=== PATIENT | female | born 1950 | race Caucasian/White ===

== ENCOUNTER 2019-11-20 15:08 | Outpatient (CLI) | payer MEDICARE, SELFPAY ==
[2019-11-20 16:42] LABS: Alanine Aminotransferase 30 U/L (4-35); Albumin Level 3.9 g/dL (3.5-5.1); Alkaline Phosphatase 122 U/L (38-126); Aspartate Amino Transferase 30 U/L (14-36); Bilirubin,Total 0.7 mg/dL (0.2-1.3); Blood Urea Nitrogen 17 mg/dL (7-17); Calcium 8.9 mg/dL (8.4-10.2); Carbon Dioxide 29 mmol/L (22-30); Chloride 107 mmol/L (98-107); Estimated Glomerular Filt Rate > 60; Glucose 104 mg/dL (65-105); Magnesium 2.1 mg/dL (1.6-2.3); Potassium 3.9 mmol/L (3.4-5.0); Sodium 139 mmol/L (137-145)
== END 2019-11-20 15:09 | disposition home or self-care (01) ==
PROVIDERS: PCP Family Medicine; Visit Provider Internal Medicine Cardiovascular Disease
DX: E78.5 Hyperlipidemia, unspecified (principal)
CPT/HCPCS: 36415; 80053; 83735

== ENCOUNTER 2020-05-14 12:40 | Outpatient (CLI) | payer MEDICARE, SELFPAY ==
--- NOTE | 2020-05-14 12:45 | ECHO_ITS ---
Patient Info Name: Carline Carrasco Age: 70 years : 1950 Gender: Female Ht: 59 in Wt: 190 lbs BSA: 1.94 m2 HR: 65 bpm BP: 183 / 99 mmHg Heart Rhythm: Sinus Rhythm Technical Quality: Good Exam Date: 05/14/2020 12:47 PM Exam Location: [facility] Patient Status: Outpatient Admit Date: 05/14/2020 Staff Ordering Physician: Chivo Ly DO Director Of Resource Development: Cory Saucedo RDCS Attending Provider: Chivo Ly DO Referring Physician: Malachi SOMMER; Exam Type: CA echo doppler color flow Study Info Indications R60.9 - Edema, unspecified Complete two-dimensional, color flow and Doppler transthoracic echocardiogram is performed. Strain analysis performed. History/Risk Factors Edema, HTN. Summary 1. Complete two-dimensional, color flow and Doppler transthoracic echocardiogram is performed. 2. Left ventricular chamber dimension is normal. 3. Left ventricular systolic function is normal, estimated at 65-70%. 4. The left ventricular diastolic function is grade I diastolic dysfunction. 5. E/e' 15 is elevated. 6. Global longitudinal strain is normal at -19.4%. 7. Left atrial chamber dimension is mildly enlarged. 8. There is moderate aortic valve sclerosis. 9. There is mild aortic valve stenosis with a peak velocity of 186 cm/s, mean gradient of 7 mmHg, and aortic valve area of 1.9 cm2. 10. The mitral valve has moderately calcified annulus. 11. There is trace pulmonic regurgitation. Left Ventricle E/e' 15 is elevated. Global longitudinal strain is normal at -19.4%. Left ventricular chamber dimension is normal. Left ventricular systolic function is normal, estimated at 65-70%. The left ventricular diastolic function is grade I diastolic dysfunction. Right Ventricle Right ventricular chamber dimension is normal. Right ventricular systolic function is normal. Left Atria Left atrial chamber dimension is mildly enlarged. Right Atria Right atrial chamber dimension is normal. Aortic Valve The aortic valve is trileaflet. There is moderate aortic valve sclerosis. There is mild aortic valve stenosis with a peak velocity of 186 cm/s, mean gradient of 7 mmHg, and aortic valve area of 1.9 cm2. There is no aortic valve regurgitation. Pulmonic Valve There is trace pulmonic regurgitation. Mitral Valve The mitral valve has moderately calcified annulus. There is no mitral valve stenosis. There is no mitral valve regurgitation. Tricuspid Valve There is no tricuspid valve regurgitation. Pericardium/Pleural There is no pericardial effusion. Inferior Vena Cava Normal inferior vena cava with >50% collapse upon inspiration consistent with normal right atrial pressure, 5 mmHg. Aorta The aortic root size at the sinus of Valsalva is normal. Left Ventricular Outflow Tract Name Value Normal LVOT 2D LVOT Diameter 2.0 cm LVOT Doppler LVOT Peak Gradient 5 mmHg LVOT Mean Gradient 3 mmHg LVOT VTI 24 cm LVOT VTI/AV VTI Ratio 0.6 LVOT Stroke Volume
== END 2020-05-14 12:41 | disposition home or self-care (01) ==
LOC: ANHCARD 12:40
PROVIDERS: PCP Family Medicine; Visit Provider Internal Medicine Cardiovascular Disease
DX: R60.9 Edema, unspecified (principal); I35.0 Nonrheumatic aortic (valve) stenosis
CPT/HCPCS: 93306

== ENCOUNTER → 2020-10-11 14:14 | Outpatient (CLI) | payer MEDICARE, SELFPAY ==
--- NOTE | ~2020-10-11 | XR_ITS ---
XR chest 2V DATE: 10/11/2020 14:25 INDICATION: Wheezing TECHNIQUE: 2 views COMPARISON: 12/16/2018 2 view chest FINDINGS: Cardiomegaly. Mild aortic unfolding. No hilar or mediastinal enlargement. Chronic mild disc oid scarring in the right lower lung. No pulmonary infiltrate or consolidation, pleural effusion or p ulmonary vascular congestion or pneumothorax is evident. Diffuse osteopenia. IMPRESSION: Cardiomegaly Chronic discoid scarring, middle lobe Reviewed, dictated and finalized at location A.
== END ==
PROVIDERS: PCP Family Medicine; Visit Provider Nurse Practitioner Family
DX: R06.2 Wheezing (principal); I51.7 Cardiomegaly
CPT/HCPCS: 71046

== ENCOUNTER 2020-11-23 20:56 | Emergency (ER) | payer MEDICARE, SELFPAY ==
[2020-11-23 21:06] VITALS: BP 216/86; PULSE 65; RESP 16; TEMP 36.9; O2SAT 100
--- NOTE | 2020-11-23 22:57 | ED.BACK ---
HPI - Back Pain/Injury General Chief Complaint: Back Pain/Injury Stated Complaint: lower back pain, incontinence Time Seen by Provider: 11/23/20 22:28 Source: patient Mode of arrival: ambulatory Limitations: no limitations History of Present Illness HPI Narrative: Patient 70 years old white female came to the emergency room complaining of intermittent urine incontinence over the last 2 weeks. 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 Patient also reported history of chronic back pain from the skull all the way down to her lumbar area, been managed by pain management physician last time was seen by him 2017 with cortisone injection. Patient also reports intermittent tingling and numbness of the lower extremity because of history of sciatica for years, today is not different than before. Patient denies bowel dysfunction, altered sensation, focal weakness, or saddle numbness, perianal paresthesia, severe lower back pain, muscular weakness of the lower legs Related Data Home Medications Medication Instructions Recorded Confirmed L. acidophilus 5 mg-digestive cap PO 05/08/19 11/15/20 enzymes combo no.5 250 mg capsule albuterol sulfate 90 mcg/actuation 2 puff INHALATION Q4H PRN gm 05/08/19 11/15/20 aerosol inhaler aspirin 81 mg chewable tablet 81 mg PO DAILY 05/08/19 11/15/20 esomeprazole magnesium 40 mg 40 mg PO DAILY 05/08/19 11/15/20 capsule,delayed release fluticasone propionate 50 1 spray NASAL DAILY 05/08/19 11/15/20 mcg/actuation nasal spray,suspension hydrocodone 5 mg-acetaminophen 325 1 tablet PO Q6H PRN 05/08/19 11/15/20 mg tablet ketotifen fumarate 0.025 % (0.035 1 drop EACH EYE BID 05/08/19 11/15/20 %) eye drops meclizine 25 mg tablet 25 mg PO DAILY PRN tablet 05/08/19 11/15/20 metronidazole 0.75 % topical gel 2 applic TOPICAL DAILY gm 05/08/19 11/15/20 multivitamin 1 tablet PO DAILY 05/08/19 11/15/20 cholecalciferol (vitamin D3) 125 5,000 unit PO DAILY 05/09/19 11/15/20 mcg (5,000 unit) capsule loratadine 10 mg tablet 10 mg PO DAILY 12/10/19 06/18/21 budesonide-formoterol HFA 80 2 puff INHALATION Q12H 11/07/19 11/15/20 mcg-4.5 mcg/actuation aerosol inhaler carboxymethylcellulose 0.5 1 drp OPHTHALMIC (EYE) BID 05/16/20 11/15/20 %-glycerin 0.9 % eye drops cholestyramine-aspartame 4 gram 2 g PO DAILY PRN gm 05/16/20 11/15/20 oral powder Allergies Allergy/AdvReac Type Severity Reaction Status Date / Time banana Allergy Intermediate SWELLING Verified 11/23/20 23:30 corn Allergy Mild Swelling Verified 11/23/20 23:30 fluticasone furoate Allergy Mild Unknown Verified 11/23/20 23:30 [From Breo Ellipta] vilanterol Allergy Mild Unknown Verified 11/23/20 23:30 [From Breo Ellipta] clarithromycin Allergy Unknown Unknown Verified 11/23/20 23:30 levofloxacin Allergy Unknown Pain Verified 11/23/20 23:30 nitrofurantoin Allergy Unknown Unknown Verified 11/23/20 23:30 Penicillins Allergy Unknown Unknown Verified 11/23/20 23:30 Sulfa (Sulfonamide Allergy Unknown Unknown Verified 11/23/20 23:30 Antibiotics) sulfanilamide Allergy Unknown Unknown Verified 11/23/20 23:30 GARLIC Allergy Unknown Unknown Uncoded 11/15/20 09:53 Review of Systems Review of Systems: Narrative: CONSTITUTIONAL: Denies fever, chills, or sweats. EYES: Denies visual changes, redness, or discharge. ENT: Denies rhinorrhea, congestion, sore throat, or otalgia. CARDIOVASCULAR: Denies chest pain, palpitations, or edema. RESPIRATORY: Denies cough or dyspnea. GASTROINTESTINAL: Denies abdominal pain, nausea, vomiting, or diarrhea. GENITOURINARY: Denies dysuria or hematuria. SKIN: Denies rash or itching. MUSCULOSKELETAL: Denies back pain, joint pain, or myalgia. NEUROLOGIC: Denies headache, numbness, or weakness. PSYCHIATRIC: Denies anxiety or depression. [facility] Past Medical History Medical History BMI 38.0-38.9,adult Family History Family History (Reviewed 11/23/20 @ 23:07 by Dejuan
[2020-11-23] MEDS: LORazepam (*CRX) 0.5 MG TABLET 1 MG PO (23:15)
[2020-11-23 23:20] LABS: Add Urine Microscopic? YES; Appearance Urine Cloudy (Clear); Bacteria Urine Trace /hpf; Bilirubin Urine Negative (Negative); Blood Urine Negative (Negative); Color Urine Yellow (Yellow); Glucose Urine UA Negative (Negative); Ketones Urine Negative (Negative); Leukocyte Esterase Ur 3+ LEU/UL (Negative); Nitrate Urine Negative (Negative); Protein Urine Negative (Negative); Squamous Epithelial Cell Urine Many /hpf (Few); Urobilinogen Urine Negative mg/dL (<2.0); WBC Urine 31-50 /hpf
[2020-11-23 23:23] VITALS: PULSE 59; RESP 16; O2SAT 100
[2020-11-23 23:32] LABS: Basophils Percent Auto 0.4 % (0.2-1.2); Eosinophils Absolute Auto 0.2 K/mm3 (0-0.3); Eosinophils Percent Auto 2.5 % (0-4.4); Hematocrit 47.1 % (37.0-47.0); Hemoglobin 15.5 g/dL (12.0-15.0); Immature Granulocyte Absolute 0.03 K/mm3 (0.00-0.031); Immature Granulocyte Percent A 0.4 % (0-0.5); Lymphocytes Absolute Auto 2.03 K/mm3 (0.9-3.2); Lymphocytes Percent Auto 29.3 % (18.3-44.2); Mean Corpuscular HGB Conc 32.9 g/dl (32-36); Mean Corpuscular Hemoglobin 31.7 pg (26-34); Mean Corpuscular Volume 96.3 fl (80-100); Mean Platelet Volume 10.2 fl (7.4-10.4); Monocytes Absolute Auto 0.4 K/mm3 (0.1-0.6); Monocytes Percent Auto 5.9 % (2.6-8.5); Neutrophils Absolute Auto 4.3 K/mm3 (1.3-6.7); Neutrophils Percent Auto 61.5 % (45.5-73.1); Platelet Count Result 218 k/mm3 (150-375); Red Blood Count 4.89 M/mm3 (4.2-5.4); Red Cell Distribution Width 12.7 % (11.5-14.5); White Blood Count 6.9 K/mm3 (4.5-10.0)
[2020-11-23 23:57] LABS: Alanine Aminotransferase 36 U/L (4-35); Albumin Level 4.4 g/dL (3.5-5.1); Alkaline Phosphatase 132 U/L (38-126); Anion Gap 7 mmol/L (8-16); Aspartate Amino Transferase 35 U/L (14-36); Bilirubin,Total 0.5 mg/dL (0.2-1.3); Blood Urea Nitrogen 17 mg/dL (7-17); Calcium 9.3 mg/dL (8.4-10.2); Carbon Dioxide 26 mmol/L (22-30); Chloride 106 mmol/L (98-107); Estimated Glomerular Filt Rate > 60; Glucose 117 mg/dL (65-105); Potassium 4.5 mmol/L (3.4-5.0); Sodium 139 mmol/L (137-145)
[2020-11-24] MEDS: MORPHINE SULFATE (*CRX) 4 MG/ML INJ IV PUSH (00:22)
[2020-11-24] MEDS: CIPROFLOXACIN 500 MG TAB PO (00:22)
[2020-11-24] MEDS: ONDANSETRON INJ 4 MG/2 ML VIAL IV PUSH (00:22)
[2020-11-24 01:00] VITALS: BP 172/83; PULSE 78; RESP 18; O2SAT 100
== END 2020-11-24 01:00 | disposition home or self-care (01) ==
PROVIDERS: Emergency Provider Emergency Medicine; PCP Family Medicine
DX: N39.0 Urinary tract infection, site not specified (principal); M54.9 Dorsalgia, unspecified
CPT/HCPCS: 36415; 80053; 81001; 85025; 87086; 87088; 96374; 96375; 99284; A9270; J2270; J2405

== ENCOUNTER 2020-12-03 08:18 | Outpatient (CLI) | payer MEDICARE, SELFPAY ==
--- NOTE | ~2020-12-03 | DEXA_ITS ---
Bone Density Report Name: Carline Carrasco Age: 70 Sex: Female Ethnicity: White Date of : 1950 Indication: postmenopausal; height loss; inflammatory bowel disease; asthma or emphysema; Referring Provider: Asha Newberry Study: Bone densitometry was performed. Exam Date: December 03, 2020 Accession number: [id number] Bone Density: Region BMD T-score Z-score Classification AP Spine (L1-L4) 0.852 -1.8 0.4 Osteopenia Femoral Neck (Left) 0.583 -2.4 -0.5 Osteopenia Total Hip (Left) 0.801 -1.2 0.4 Osteopenia Total Hip Bilateral Avg 0.769 -1.5 0.2 Osteopenia Femoral Neck (Right) 0.508 -3.1 -1.2 Osteoporosis Total Hip (Right) 0.736 -1.7 -0.1 Osteopenia World Health Organization criteria for BMD impression classify patients as: Normal (T-score at or above -1.0), Osteopenia (T-score between -1.0 and -2.5), or Osteoporosis (T-score at or below -2.5). 10-year Fracture Risk: FRAX not reported because: Some T-score for Spine Total or Hip Total or Femoral Neck at or below -2.5 Clinical Information Provided by Patient: Has used the following medications: Vitamin D Has the following medical conditions: Asthma or Emphysema, Inflammatory bowel diseases Patient maximum height was 60 Menopause Age: 49 No regular weight bearing exercise Does not regularly consume dairy products Onset of menses at age 10 Number of children 3 Impression: The patient has osteoporosis, based on the Right Femoral Neck T-score. Discussion: INCREASED RISK OF FRACTURE. BONE DENSITY IS UNDESIRABLY LOW AT ONE OR MORE SKELETAL SITES, CONSISTENT WITH POSTMENOPAUSAL OSTEOPOROSIS. This patient's lowest T-score meets the World Health Organization's (WHO) criteria for osteoporosis at one or more sites (T-score -2.5 or below). In untreated patients, the risk of osteoporotic fracture increases approximately two-fold for each 1.0 SD decrease in T-score. Low bone density is not the only risk factor for fracture; also consider factors such as patient's age, frailty or poor health, risk of falling, risk of injury, previous osteoporotic fracture, family history of osteoporosis, cigarette smoking, low body weight, etc. Not everyone with low bone mineral density has osteoporosis; osteomalacia and other metabolic bone disorders should also be considered. Patients who have osteoporosis should be evaluated for specific diseases and conditions (secondary causes) that may cause or contribute to bone loss. The [place] [employer] Endocrinologists (AACE) and National Osteoporosis Foundation (NOF) recommend pharmacologic intervention for all postmenopausal women whose T-score is in this range. The patient should follow a healthful lifestyle (good nutrition with adequate calcium and vitamin D, and appropriate weight-bearing exercise). Follow-Up: Consider a repeat BMD and Ve
== END 2020-12-03 08:19 | disposition home or self-care (01) ==
PROVIDERS: PCP Family Medicine; Visit Provider Physician Assistant Medical
DX: Z78.0 Asymptomatic menopausal state (principal); M85.88 Other specified disorders of bone density and structure, other site; M85.852 Other specified disorders of bone density and structure, left thigh; M85.851 Other specified disorders of bone density and structure, right thigh; M81.0 Age-related osteoporosis without current pathological fracture
CPT/HCPCS: 77080

== ENCOUNTER → 2021-09-11 12:01 | Outpatient (CLI) | payer MEDICARE, SELFPAY ==
--- NOTE | ~2021-09-11 | XR_ITS ---
EXAMINATION: XR hand LT min 3V EXAM DATE: 09/11/2021 12:34 INDICATION: R22.30 - Localized swelling, mass and lump, unspecified u... Left hand has lump on anter ior scaphoid area, shooting pain radiates to thumb, some swelling and stiffness, right hand has same pain on anterior thumb, tips of fingers tingle; hx surg, no injury TECHNIQUE: Left hand frontal, lateral and oblique projections obtained and reviewed. Correlation is m kalpesh to contralateral hand same date. FINDINGS: Left metacarpal bones are unremarkable. There is moderate polyarticular interphalangeal pr imary osteoarthritis. Moderate left triscaphe primary osteoarthritis. Scaphoid bone is otherwise unre markable. There are no bony erosions identified. There are no acute fractures or dislocations identif ied. There is no subcutaneous gas. The soft tissue is unremarkable. There are no radiopaque forei gn bodies. IMPRESSION: Moderate left hand polyarticular osteoarthritis. Reviewed, dictated and finalized at location B.
--- NOTE | ~2021-09-11 | XR_ITS ---
EXAMINATION: XR hand RT min 3V EXAM DATE: 09/11/2021 12:34 INDICATION: R22.30 - Localized swelling, mass and lump, unspecified u... Left hand has lump on ante rior scaphoid area, shooting pain radiates to thumb, some swelling and stiffness, right hand has same pain on anterior thumb, tips of fingers tingle; hx surg, no injury. TECHNIQUE: Right hand frontal, lateral and oblique projections obtained and reviewed. Correlation is made to contralateral hand same date. FINDINGS: Right metacarpal bones are unremarkable. Moderate polyarticular interphalangeal osteoarth ritis. There are no bony erosions identified. There are no acute fractures or dislocations identified . There is no subcutaneous gas. The soft tissue is unremarkable. There are no radiopaque foreign bodies. IMPRESSION: Moderate right hand polyarticular interphalangeal osteoarthritis. Reviewed, dictated and finalized at location B.
== END ==
PROVIDERS: PCP Family Medicine; Visit Provider Nurse Practitioner Family
DX: M25.432 Effusion, left wrist (principal); M19.042 Primary osteoarthritis, left hand; M19.041 Primary osteoarthritis, right hand
CPT/HCPCS: 73130

== ENCOUNTER → 2021-11-25 14:58 | Outpatient (CLI) | payer MEDICARE, SELFPAY ==
--- NOTE | ~2021-11-25 | XR_ITS ---
XR chest 2V DATE: 11/25/2021 15:15 INDICATION: Cough TECHNIQUE: 2 views COMPARISON: 10/11/2020 2 view chest FINDINGS: Heart size is within normal limits. Is mild aortic unfolding. No hilar or mediastinal enlar gement. Mild chronic discoid scarring, lower lungs, right greater than left. No pulmonary infiltrate or conso lidation, pleural effusion or pulmonary vascular congestion or pneumothorax is detected. Diffuse osteopenia. There is degenerative spurring and scoliosis of the thoracic spine. IMPRESSION: Mild discoid scarring in the lower lung zones No active cardiopulmonary disease Reviewed, dictated and finalized at location B.
== END ==
PROVIDERS: PCP Family Medicine; Visit Provider Nurse Practitioner Family
DX: R05.9 Cough, unspecified (principal); M41.9 Scoliosis, unspecified; R92.8 Other abnormal and inconclusive findings on diagnostic imaging of breast; M46.04 Spinal enthesopathy, thoracic region
CPT/HCPCS: 71046

== ENCOUNTER 2022-03-05 09:53 | Outpatient (CLI) | payer MEDICARE, SELFPAY ==
--- NOTE | 2022-03-06 12:12 | WPDPFTINT ---
PFT Procedure Performed PFT Procedure Performed Spirometry with Pre/Post Bronchodilator Plethysmography (Lung Vol) Diffusing Cap (DLCO) Flow Vol Loop PFT Interpretation This is a pulmonary function test with pre and post-bronchodilator spirometry, plethysmography and diffusing capacity. The test was performed and results interpreted in accordance with the 2019 and 2005 ATS/ERS Task Force guidelines respectively using the Global Lung Function Initiative-2012 reference equations. Patient demonstrated good effort and cooperation. Reproducibility criteria were met. The quality of the pre bronchodilator spirometry maneuver was Grade A and post bronchodilator spirometry maneuver was Grade A. Findings: Spirometry: The contour the inspiratory and expiratory flow tracing are normal. The pre bronchodilator FVC is 2.10 L, 106% predicted. The pre bronchodilator FEV1 is 1.49 L, 95% predicted. The pre bronchodilator FEV1: FVC ratio 71%. The post bronchodilator FVC is 2.11 L, representing a 1% increase. The post bronchodilator FEV1 is 1.49 L, representing no change. The post bronchodilator FEV1: FVC ratio 71%. Plethysmography: The total lung capacity is 4.51 L, 119% predicted. The functional residual capacity is 2.83 L, 125% predicted. The residual volume is 2.41 L, 131% predicted. Diffusing capacity: The diffusing capacity unadjusted for hemoglobin and carboxyhemoglobin is 17.4, 95% predicted. The diffusing capacity adjusted for alveolar volume is 5.17, 115% predicted. Impression: The spirometry is normal without evidence of an obstructive abnormality. There is no significant improvement after inhaling a single dose of albuterol. The lung volumes are normal. The diffusing capacity is normal. There are no prior studies for comparison
== END 2022-03-05 09:54 | disposition home or self-care (01) ==
PROVIDERS: PCP Family Medicine; Visit Provider Nurse Practitioner Family
DX: R05.9 Cough, unspecified (principal); R06.02 Shortness of breath
CPT/HCPCS: 94060; 94726; 94729

== ENCOUNTER → 2022-03-18 10:34 | Outpatient (CLI) | payer MEDICARE, SELFPAY ==
--- NOTE | ~2022-03-18 | US_ITS ---
EXAMINATION: US abdomen limited DATE: 03/18/2022 11:25 INDICATION: R74.01 - Elevation of levels of liver transaminase levels TECHNIQUE: Multiple grayscale and Doppler ultrasound images of limited portions of the abdomen were o btained. COMPARISON: None available. FINDINGS: The visualized portions of the pancreas are normal. The liver is enlarged, with increased e chogenicity, and coarse echotexture there is liver surface nodularity. Normal hepatopetal flow in the main portal vein. Cholecystectomy. The common bile duct measures 7 mm. There was no sonographic Murp hy sign. IMPRESSION: Hepatomegaly. Cirrhotic liver changes. Echogenic liver, most commonly due to steatosis but also can b e seen with hepatitis and fibrosis. Reviewed, dictated and finalized at location K. IMPRESSION: Hepatomegaly. Cirrhotic liver changes. Echogenic liver, most commonly due to st eatosis but also can be seen with hepatitis and fibrosis.
== END ==
PROVIDERS: PCP Nurse Practitioner Family; Visit Provider Nurse Practitioner Family
DX: R74.01 Elevation of levels of liver transaminase levels (principal); R16.0 Hepatomegaly, not elsewhere classified
CPT/HCPCS: 76705

== ENCOUNTER → 2022-04-15 12:25 | Outpatient (CLI) | payer MEDICARE, SELFPAY ==
--- NOTE | ~2022-04-15 | MM_ITS ---
EXAMINATION: MM screening manuel BI w julio cesar HISTORY: Screening TECHNIQUE: Craniocaudal and mediolateral oblique 3-D tomosynthesis images were obtained and synthetic 2-D images were generated. CAD analysis was submitted and interpreted. COMPARISON: Comparison to multiple prior studies sequentially, with oldest reviewed study dated 05/2013. BREAST PARENCHYMAL COMPOSITION: There are scattered areas of fibroglandular density. FINDINGS: There is no evidence of suspicious mass, calcification, or architectural distortion to sugg est malignancy in either breast. There has been no suspicious interval change. IMPRESSION: 1. No mammographic evidence of malignancy. 2. Recommend routine screening mammography in one year. BI-RADS Category 1: Negative Reviewed, dictated and finalized at location A. 400 PROGRAMMER
== END ==
PROVIDERS: PCP Family Medicine; Visit Provider Family Medicine
DX: Z12.31 Encounter for screening mammogram for malignant neoplasm of breast (principal)
CPT/HCPCS: 77063; 77067

== ENCOUNTER 2023-01-08 14:39 | Outpatient (CLI) | payer MEDICARE, SELFPAY ==
--- NOTE | 2023-01-08 14:41 | ECHO_ITS ---
Patient Info Name: Carline Carrasco Age: 72 years : 1950 Gender: Female Ht: 59 in Wt: 156 lbs BSA: 1.75 m2 HR: 69 bpm BP: 148 / 77 mmHg Technical Quality: Good Exam Date: 01/08/2023 2:54 PM Exam Location: [facility] Patient Status: Outpatient Admit Date: 01/08/2023 Staff Ordering Physician: Chivo yL DO Bridge Maintenance Worker: Anabell Cardenas RDCS Attending Provider: Chivo Ly DO Referring Physician: Malachi SOMMER; Exam Type: CA echo doppler color flow Study Info Indications I35.0 - Nonrheumatic aortic (valve) stenosis Complete two-dimensional, color flow and Doppler transthoracic echocardiogram is performed. Summary 1. Complete two-dimensional, color flow and Doppler transthoracic echocardiogram is performed. 2. Left ventricular chamber dimension is normal. 3. Left ventricular systolic function is normal, estimated at 60-65%. 4. The left ventricular diastolic function is grade I diastolic dysfunction. 5. E/e' 12 is mildly elevated. 6. Left atrial chamber dimension is mildly enlarged. 7. There is moderate aortic valve sclerosis. 8. There is mild aortic valve stenosis with a peak velocity of 216 cm/s, mean gradient of 10 mmHg, and aortic valve area of 1.6 cm2. 9. The mitral valve has moderately calcified leaflets and moderately calcified annulus. 10. There is trace tricuspid valve regurgitation. 11. No pulmonary hypertension, estimated pulmonary arterial systolic pressure is 29 mmHg. 12. There is trace pulmonic regurgitation. Left Ventricle E/e' 12 is mildly elevated. Left ventricular chamber dimension is normal. Left ventricular systolic function is normal, estimated at 60-65%. The left ventricular diastolic function is grade I diastolic dysfunction. Right Ventricle Right ventricular systolic function is normal and with normal TAPSE 2.2 cm. Right ventricular chamber dimension is normal. Left Atria Left atrial chamber dimension is mildly enlarged. Right Atria Right atrial chamber dimension is normal. Aortic Valve The aortic valve is trileaflet. There is moderate aortic valve sclerosis. There is mild aortic valve stenosis with a peak velocity of 216 cm/s, mean gradient of 10 mmHg, and aortic valve area of 1.6 cm2. There is no aortic valve regurgitation. Pulmonic Valve There is trace pulmonic regurgitation. Mitral Valve The mitral valve has moderately calcified leaflets and moderately calcified annulus. There is no mitral valve stenosis. There is no mitral valve regurgitation. Tricuspid Valve There is trace tricuspid valve regurgitation. No pulmonary hypertension, estimated pulmonary arterial systolic pressure is 29 mmHg. Pericardium/Pleural There is no pericardial effusion. Inferior Vena Cava Normal inferior vena cava with >50% collapse upon inspiration consistent with normal right atrial pressure, 5 mmHg. Aorta The aortic root size at the sinus of Valsalva is normal. Left Ventricular Outflow Tract Name Value Normal LVOT 2D LVOT Diameter 2.0 cm LVOT Doppler LVOT Peak Gradient 6 mmHg LVOT Mean Gradient 3 mmHg LVOT VTI 23 cm LVOT VTI/AV VTI Ratio 0.5
== END 2023-01-08 14:40 | disposition home or self-care (01) ==
PROVIDERS: PCP Family Medicine; Visit Provider Internal Medicine Cardiovascular Disease
DX: I35.0 Nonrheumatic aortic (valve) stenosis (principal)
CPT/HCPCS: 93306

== ENCOUNTER 2023-05-21 14:12 | Outpatient (CLI) | payer MEDICARE, SELFPAY ==
--- NOTE | ~2023-05-21 | CT_ITS ---
EXAMINATION: CT abdomen pelvis wo con DATE: 05/21/2023 14:58 INDICATION: Right upper quadrant pain. Diaphragmatic hernia. TECHNIQUE: Computed tomography (CT) of the abdomen and pelvis was performed without intravenous contr ast. Automated exposure control and iterative reconstruction technique were employed. Exam dose: 517 .17 mGy-cm total exam DLP. COMPARISON: Limited abdominal ultrasound examination 08/23/2006 CT renal scan FINDINGS: There is a 9 mm mass of the middle lobe There is mild discoid atelectasis or scarring in the lower lung zones, most prominent at the middle l obe There are at least a couple of approximately 3 mm nodular densities of the right lower lobe. There is a calcified right lower lobe pulmonary granuloma. Heart size is normal. There is prominent coronary artery calcification. No significant pericardial or pleural effusion Status post cholecystectomy. No bile duct or pancreatic duct dilatation. No hepatic, splenic, pancreatic, and adrenal or renal space-occupying mass lesion is evident. No urin carolyn tract calculus or hydroureteronephrosis. The urinary bladder is relatively evacuated. Retroverted uterus. There is atherosclerotic calcification of the abdominal aorta but normal caliber. Prominent calcifica tion at the origins of the renal arteries. No intraperitoneal or retroperitoneal or pelvic mass lesio n or adenopathy or ascites is noted. Normal appendix. Diverticulosis of the left and right colon; no CT evidence of diverticulitis. No bow el obstruction or intraperitoneal free air is detected. Diffuse idiopathic skeletal hyperostosis of the lower thoracic spine. Hemangioma of L3 vertebral body. Prominent multilevel degenerative disc disease, especially at L1-2, L2-3 and L5-S1 with mild retrolis thesis at each of these levels. There is prominent degenerative change at the apophyseal joints, with associated grade 1 anterolisthe sis at L4-5. IMPRESSION: 9 mm middle lobe mass and several 3 mm or smaller right lower lobe lung nodules; primary or metastatic lung cancer must be considered Small hiatal hernia Status post cholecystectomy Normal appendix Diverticulosis of left and right colon Normal appendix Reviewed, dictated and finalized at Location A. Reviewed, dictated and finalized at location A. [employer]ICER
== END 2023-05-21 14:13 | disposition home or self-care (01) ==
PROVIDERS: PCP Family Medicine; Visit Provider Nurse Practitioner Family
DX: K44.9 Diaphragmatic hernia without obstruction or gangrene (principal); K57.30 Diverticulosis of large intestine without perforation or abscess without bleeding; R91.8 Other nonspecific abnormal finding of lung field; Z90.49 Acquired absence of other specified parts of digestive tract
CPT/HCPCS: 74176

== ENCOUNTER 2023-06-01 12:50 | Outpatient (CLI) | payer MEDICARE, SELFPAY ==
--- NOTE | ~2023-06-01 | CT_ITS ---
Clinical Indication: Lung masses CT Scan of the Chest with Contrast: Technique: Contiguous sections were acquired throughout the chest after intravenous administration of 75 cc of Omnipaque 350. Dose reduction technique was used on this scan by utilizing automated exposu re control and iterative reconstruction technique. The dose-length product (DLP) was 226.06 mGy-cm. Findings: There is no evidence of any significant mediastinal, hilar or axillary lymphadenopathy. No large cent ral pulmonary embolus evident. There is no evidence of aortic dissection or aneurysm. There is no evidence of pleural or pericardial effusion. 1.1 cm ovoid right middle lobe pulmonary nodule present. There is a 4 mm right basilar pulmonary nodu le (axial image 73). Images through the upper abdomen reveal no abnormalities. Impression: 1.1 cm right middle lobe pulmonary nodule. 4 mm additional right basilar pulmonary nodule. These lesi ons are indeterminate. Consider PET/CT or tissue sampling of the larger nodule to establish histologi c diagnosis. Reviewed, dictated and finalized at [facility]. ER MAKER MACHINE Impression: 1.1 cm right middle lobe pulmonary nodule. 4 mm additional right basilar pulmon carolyn nodule. These lesions are indeterminate. Consider PET/CT or tissue sampling of the larger nodule to establish histologic diagnosis.
[2023-06-01 14:05] LABS: Estimated Glomerular Filt Rate > 60
== END 2023-06-01 12:51 | disposition home or self-care (01) ==
PROVIDERS: PCP Family Medicine; Visit Provider Nurse Practitioner Family
DX: R91.8 Other nonspecific abnormal finding of lung field (principal)
CPT/HCPCS: 71260; Q9967

== ENCOUNTER 2023-06-10 11:59 | Outpatient (CLI) | payer MEDICARE, SELFPAY ==
--- NOTE | ~2023-06-10 | PE_ITS ---
EXAMINATION: PET skull to mid thigh DATE: 06/10/2023 13:53 INDICATION: Lung mass TECHNIQUE: Blood glucose level was 107 mg/dL. 9.843 mCi of 18-fluorodeoxyglucose (18-FDG) was adminis tered i.v. Low dose computed tomography (CT) images were acquired from the base of the brain to the p roximal thighs for attenuation correction and anatomic localization. Positron emission tomography (PE T) images were acquired in the same distribution beginning 58 minutes after injection. Images includi ng fused PET/CT images were reconstructed in axial, coronal, and sagittal planes. Automated exposure control technique was employed. The dose-length product was 960.59mGy-cm. COMPARISON: Chest CT dated 06/01/[address] abdomen and pelvis dated 05/21/2023 FINDINGS: Head/neck: There is symmetric increased activity in the oral cavity, lingual tonsils, laryngeal muscles and ocul ar muscles without CT correlate, likely physiologic. Multinodular goiter without elevated FDG activit y. No pathologically enlarged cervical lymphadenopathy or suspicious foci of increased soft tissue FD G uptake in the visualized head or neck. Chest: No abnormal increased FDG uptake associated with a 10 mm right middle lobe nodule with maximal SUV of 2.0 which remains significantly below the maximal SUV in the liver of 3.6 and of the blood pool of 2 .6. Mild discoid atelectasis in the bilateral lower lungs. No pneumonia, pulmonary edema or other pul monary infiltrates. No pleural effusion. Heart size is normal. Atherosclerotic coronary artery calcif ications. Thoracic aorta is normal in caliber. No pathologically enlarged or FDG avid thoracic lympha denopathy. Abdomen/pelvis/proximal thighs: Physiologic renal accumulation and excretion of FDG activity in the kidneys, bladder and along portio ns of ureters. Cholecystectomy clips the gallbladder fossa. Normal degree and heterogenous pattern of increased uptake throughout the liver without radiologic correlate or dominant FDG avid lesion. The pancreas, spleen and bilateral adrenal glands are normal. Mild uptake scattered throughout the bowels without radiologic correlate, also likely physiologic. There are scattered colonic diverticula witho ut adjacent from trace stranding to suggest diverticulitis. Normal appendix. No other abnormal foci o f increased FDG uptake or pathologically enlarged lymphadenopathy in the abdomen, pelvis or proximal thighs. Musculoskeletal: There is a region of increased FDG uptake with maximal SUV of 5.1 extending along the anterior left g luteus medius muscle which is without evident radiologic correlate on either the current or prior CT which favors physiologic response to either recent muscular activity or trauma. Additional mild likel y physiologic muscular activity in the bilateral upper extremities. There is diffuse mild likely phys iologic increased marrow uptake throughout the axial and appendicular skeleton relatively sparing the L3 vertebral body where the marrow has been replaced with a large hemangioma. No other suspicious ly tic, blastic or more focally FDG avid bone lesions. IMPRESSION: 1. No increased FDG uptake associated with a 10 mm right middle lobe nodule. While reassuring this do es not absolutely exclude malignancy and would recommend 3-6 month follow-up low-dose noncontrast sam st CT. 2. Multinodular goiter without FDG uptake. Could consider thyroid ultrasound for risk stratification. 3. No lesion suspicious for primary or metastatic disease in the abdomen or pelvis. Reviewed, dictated and finalized at location A. [facility] IMPRESSION: 1. No increased FDG uptake associated with a 10 mm right middle lobe nodule. Wh ile reassuring this does not absolutely exclude malignancy and would recommend 3-6 month follow-up low-dose noncontrast chest CT. 2
[2023-06-10 12:27] LABS: Glucose Point of Care 107 mg/dl (65-105)
== END 2023-06-10 12:00 | disposition home or self-care (01) ==
PROVIDERS: PCP Family Medicine; Visit Provider Nurse Practitioner Family
DX: E04.2 Nontoxic multinodular goiter (principal); R91.8 Other nonspecific abnormal finding of lung field
CPT/HCPCS: 78815; A9552

== ENCOUNTER 2023-07-01 14:40 | Outpatient (CLI) | payer MEDICARE, SELFPAY ==
--- NOTE | ~2023-07-01 | US_ITS ---
EXAMINATION: US thyroid DATE: 07/01/2023 15:40 INDICATION: Nontoxic goiter, unspecified. TECHNIQUE: Multiple ultrasound images of the thyroid were obtained. COMPARISON: Ultrasound 11/01/2018, PET/CT 06/10/23 FINDINGS: The right thyroid lobe measures 4.9 x 1.8 x 2.4 cm. The left thyroid lobe measures 5.3 x 2.0 x 2.1 c m. In the left thyroid lobe, there is a 1.7 cm mixed cystic and solid, hypoechoic, wider than tall n odule with smooth margin without echogenic foci (TI-RADS TR3), new from 11/01/18. In the left thyroid l obe, there is a 10 mm predominantly solid, hypoechoic wider than tall nodule with smooth margin witho ut echogenic foci (TR4) that measured 8 mm on 11/01/18. In the right thyroid lobe, there are multiple c onfluent nodules of similar ultrasound appearance, stable from 11/01/2018. IMPRESSION: 1. Multinodular goiter. Thyroid ultrasound is recommended in 2 years. Reviewed, dictated and finalized at location A. [facility]
== END 2023-07-01 14:41 | disposition home or self-care (01) ==
PROVIDERS: PCP Family Medicine; Visit Provider Nurse Practitioner Family
DX: E04.2 Nontoxic multinodular goiter (principal)
CPT/HCPCS: 76536

== ENCOUNTER 2023-09-28 13:42 | Outpatient (CLI) | payer MEDICARE, SELFPAY ==
--- NOTE | ~2023-09-28 | CT_ITS ---
CT Scan of the Chest without Contrast: Clinical Indication: Nonspecific abnormal finding of lung field Technique: Contiguous sections were acquired throughout the chest without intravenous contrast. Dose reduction technique was used on this scan by utilizing automated exposure control and iterative recon struction technique. The dose-length product (DLP) was 209.94 mGy-cm. COMPARISON: 06/01/2023 Findings: There is no evidence of any significant mediastinal, hilar or axillary lymphadenopathy. Coronary clint ry calcifications are present. There is no evidence of pleural or pericardial effusion. Stable 1 cm right middle lobe pulmonary nodule. Stable 3 mm right basilar pulmonary nodule. Images through the upper abdomen reveal no abnormalities. Impression: Stable 1 cm right middle lobe pulmonary nodule. Stable 3 mm right basilar pulmonary nodule. Reviewed, dictated and finalized at location . Impression: Stable 1 cm right middle lobe pulmonary nodule. Stable 3 mm right basilar pulmo nary nodule.
== END 2023-09-28 13:43 | disposition home or self-care (01) ==
LOC: ANHIMG 13:44
PROVIDERS: PCP Family Medicine; Visit Provider Nurse Practitioner Family
DX: R91.8 Other nonspecific abnormal finding of lung field (principal)
CPT/HCPCS: 71250

== ENCOUNTER 2024-01-07 15:30 | Outpatient (CLI) | payer MEDICARE, SELFPAY ==
--- NOTE | ~2024-01-07 | XR_ITS ---
XR shoulder LT min 2V Ordering provider: CHELSEA Scott History: . no injury left shoulder pain . Comparison: June 24, 2016 FINDINGS: BONES: No acute fracture or dislocation. JOINT SPACES: The acromioclavicular joint is normal. The glenohumeral joint is normal. SOFT TISSUES: Normal. IMPRESSION: No acute osseous abnormality left shoulder. Reviewed, dictated and finalized at location A.
== END 2024-01-07 15:31 ==
PROVIDERS: PCP Family Medicine; Visit Provider Nurse Practitioner Family
DX: M25.512 Pain in left shoulder (principal)
CPT/HCPCS: 73030

== ENCOUNTER 2024-02-07 10:25 | Outpatient (CLI) | payer MEDICARE, SELFPAY ==
--- NOTE | ~2024-02-07 | XR_ITS ---
Left wrist Technique: PA, oblique, lateral, and ulnar deviation views were obtained. Clinical History: Pain Findings: No acute fracture or dislocation is seen. Osseous alignment is anatomic. There is moderate degenerative change of the triscaphe joint. Soft tissues are unremarkable. Impression: Moderate degenerative changes of the triscaphe joint. Reviewed, dictated and finalized at location . Impression: Moderate degenerative changes of the triscaphe joint.
== END 2024-02-07 10:26 | disposition home or self-care (01) ==
PROVIDERS: PCP Family Medicine; Visit Provider Plastic Surgery
DX: M19.032 Primary osteoarthritis, left wrist (principal)
CPT/HCPCS: 73110

== ENCOUNTER 2024-02-22 13:52 | Outpatient (CLI) | payer MEDICARE, SELFPAY ==
--- NOTE | ~2024-02-22 | MR_ITS ---
EXAMINATION: MR wrist LT wo/w con DATE: 02/22/2024 15:12 INDICATION: Left wrist mass versus ganglion cyst TECHNIQUE: Magnetic resonance imaging (MRI) of the left wrist was performed without and with 13 mL Mu ltihance intravenous contrast. Sequences performed include axial, sagittal and coronal T1-weighted FS E and T2-weighted FS FSE, axial T1-weighted FS FSE, sagittal PD-weighted FSE and post contrast axial, sagittal and coronal T1-weighted FS FSE. COMPARISON: Left wrist radiographs dated 02/17/24 FINDINGS: Intrinsic ligaments: The scapholunate and lunotriquetral ligaments are normal. Triangular fibrocartilage complex (TFCC): The triangular fibrocartilage including its foveal and styloid attachments as well as the dorsal and volar radioulnar ligaments are normal. The ulnotriquetral ligament is normal. There is a tear of the ulnar side of the extensor carpi ulnaris of sheath with subluxation of the extensor carpi ulnaris ten don across the ulnar rim of the ECU groove. Extensor wrist: Extensor tendons of the wrist are normal. No tenosynovitis. Flexor wrist: There is focal moderate tendinopathy and longitudinal split tearing of the flexor carpi radialis tend on with prominent surrounding focal enhancing tenosynovitis at the level of the triscaphe joint. The remaining flexor tendons of the wrist are normal. No abnormality in the carpal tunnel with normal med bart nerve. Guyon's canal: Guyon's canal including the ulnar nerve and artery are normal. 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 Mild osteoarthritis at the wrist, distal radioulnar and first carpal metacarpal joints. No fracture , erosions, avascular necrosis or pathologic marrow replacing process. There is numerous indeterminat e very small T2 hyperintense lesions of indeterminate etiology measuring up to 4 x 2 mm in maximal di mensions in the subcutaneous fat which unlike the adjacent subcutaneous vasculature demonstrates no e nhancement favoring cystic over neoplastic lesion, potentially epidermoid cyst or perilymphatic malfo rmations. IMPRESSION: 1. 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 2. Numerous indeterminate very small T2 hyperintense lesion in the subcutaneous fat at the palm of th e hand without evident contrast enhancement favoring benign cystic lesion potentially epidermoid cyst or lymphatic malformations. Reviewed, dictated and finalized at location A. IMPRESSION: 1. 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 2. Numerous indeterminate very small T2 hyperintense lesion in the subcutaneous fat at the palm of the hand without evident contrast enhancement favoring jaime gn cystic lesion potentially epidermoid cyst or lymphatic malformations.
== END 2024-02-22 13:53 | disposition home or self-care (01) ==
LOC: MICIMG 13:53
PROVIDERS: PCP Family Medicine; Visit Provider Plastic Surgery
DX: M19.032 Primary osteoarthritis, left wrist (principal)
CPT/HCPCS: 73223; A9577

== ENCOUNTER 2024-09-27 13:50 | Outpatient (CLI) | payer MEDICARE, SELFPAY ==
--- NOTE | 2024-09-27 13:53 | ECHO_ITS ---
Patient Info Name: Carlien Carrasco Age: 74 years : 1950 Gender: Female Ht: 59 in Wt: 138 lbs BSA: 1.64 m2 HR: 64 bpm BP: 160 / 104 mmHg Technical Quality: Good Exam Date: 09/27/2024 2:08 PM Exam Location: Echo Lab Patient Status: Outpatient Admit Date: 09/27/2024 Staff Ordering Physician: Chivo Ly DO [employer] Technician: Nicole Mendez RDCS Attending Provider: Chivo Ly DO Referring Physician: Malachi SOMMER; Exam Type: CA echo doppler color flow Study Info Indications I35.0 - Nonrheumatic aortic (valve) stenosis Complete two-dimensional, color flow and Doppler transthoracic echocardiogram is performed. Summary 1. Complete two-dimensional, color flow and Doppler transthoracic echocardiogram is performed. 2. Left ventricular chamber dimension is normal. 3. Left ventricular systolic function is normal, estimated at 65-70%. 4. There is mild concentric increased left ventricular wall thickness. 5. The left ventricular diastolic function is grade I diastolic dysfunction. 6. E/e' 10 is mildly elevated. 7. Left atrial chamber dimension is moderately enlarged. 8. There is moderate aortic valve sclerosis. 9. There is mild aortic valve stenosis with a peak velocity of 157 cm/s, mean gradient of 7 mmHg, and aortic valve area of 2.0 cm2. 10. The mitral valve has mildly calcified leaflets and moderately calcified annulus. 11. There is mild mitral valve regurgitation. 12. There is mild tricuspid valve regurgitation. 13. No pulmonary hypertension, estimated pulmonary arterial systolic pressure is 29 mmHg. 14. There is trace pulmonic regurgitation. Left Ventricle E/e' 10 is mildly elevated. Left ventricular chamber dimension is normal. Left ventricular systolic function is normal, estimated at 65-70%. There is mild concentric increased left ventricular wall thickness. The left ventricular diastolic function is grade I diastolic dysfunction. Right Ventricle Right ventricular systolic function is normal and with normal TAPSE 2.2 cm. Right ventricular chamber dimension is normal. Left Atria Left atrial chamber dimension is moderately enlarged. Right Atria Right atrial chamber dimension is normal. Aortic Valve The aortic valve is trileaflet. There is moderate aortic valve sclerosis. There is mild aortic valve stenosis with a peak velocity of 157 cm/s, mean gradient of 7 mmHg, and aortic valve area of 2.0 cm2. There is no aortic valve regurgitation. Pulmonic Valve There is trace pulmonic regurgitation. Mitral Valve The mitral valve has mildly calcified leaflets and moderately calcified annulus. There is no mitral valve stenosis. There is mild mitral valve regurgitation. Tricuspid Valve There is mild tricuspid valve regurgitation. No pulmonary hypertension, estimated pulmonary arterial systolic pressure is 29 mmHg. Pericardium/Pleural There is no pericardial effusion. Inferior Vena Cava Normal inferior vena cava with >50% collapse upon inspiration consistent with normal right atrial pressure, 5 mmHg. Aorta The aortic root size at the sinus of Valsalva is normal. Left Ventricular Outflow Tract Name Value Normal LVOT 2D LVOT Diameter 2.0 cm LVOT Doppler LVOT Peak Gradient 3 mmHg LVOT Mean Gradient 2 mmHg LVOT VTI 22 cm LVOT VTI/AV VTI Ratio 0.6 LVOT Stroke Volume 70 ml LVOT CO 12.5 l/min LVOT CI 7.6 l/min/m2 Pulmonic Valve Name Value Normal PV Doppler PV Peak Gradient 3 mmHg Mitral Valve Name Value Normal MV Doppler MV Decel Marin 420 cm/s2 MV PHT 65 ms MV Area (PHT) 3.4 cm2 4.0-5.0 MV Diastolic Function MV E Peak Velocity 95 cm/s MV A Peak Velocity 133 cm/s MV E/A 0.7 MV Decel Time 226 ms MV Annular TDI MV E/e' (Septal) 12.0 <=8.0 MV E/e' (Lateral) 9.8 <=8.0 MV E/e' (Average) 10.9 Tricuspid Valve Name Value Normal TV Regurgitation Doppler TR Peak Velocity 246 cm/s TR Peak Gradient 24 mmHg Estimated PAP/RSVP RA Pressure 5 mmHg <=5 PA Systolic Pressure 29 mmHg <36 RV Systolic Pressure 29 mmHg <36 Aorta Name Value Normal Ascending Aorta Ao Root Diameter (MM) 2.9 cm Ao Root Diam Index (MM) 1.7 cm/m2 Aortic Valve Name Value Normal AV Doppler AV Peak Velocity 157 cm/s AV Peak Gradient 10 mmHg AV Mean Gradient 7 mmHg AV VTI 36 cm AV Area (Cont Eq VTI) 2.0 cm2 >=3.0 AV Area (Cont Eq Gallo) 1.8 cm2 AV Regurgitation 2D LVOT Area 3.2 cm2 Ventricles Name Value Normal LV Dimensions 2D/MM IVS Diastolic Thickness (2D) 1.1 cm 0.6-1.0 LVID Diastole (2D) 3.5 cm 3.8-5.2 LVIW Diastolic Thickness (2D) 1.0 cm 0.6-0.9 LVID Systole (2D) 2.0 cm 2.2-3.5 LVOT Diameter 2.0 cm LV Mass (2D Cubed) 111.16 g 67.00-162.00 LV Mass Index (2D Cubed) 68 g/m2 43-95 Relative Wall Thickness (2D) 0.54 LV Fractional Shortening/Ejection Fraction 2D/MM LV Fractional Shortening (2D) 44 % 27-45 LV EF (2D Teicholz) 76 % 54-74 LV Diastolic Volume (4C MOD) 98 ml LV EF (4C MOD) 64 % LV Diastolic Volume (2C MOD) 78 ml LV EF (2C MOD) 75 % LV Diastolic Volume (BP MOD) 88 ml 46-106 LV Diastolic Volume Index (BP MOD) 54 ml/m2 29-61 LV Systolic Volume (BP MOD) 26 ml 14-42 LV Systolic Volume Index (BP MOD) 16 ml/m2 8-24 LV EF (BP MOD) 70 % 54-74 LV Diastolic Length (4C) 6.9 cm LV Systolic Length (4C) 5.4 cm LV Stroke Volume (4C MOD) 62 ml RV Dimensions 2D/MM RVID Diastole (2D) 3.4 cm 2.5-3.5 Atria Name Value Normal LA Dimensions LA Dimension (MM) 3.5 cm 2.7-3.8 LA Volume (4C A-L) 51 ml LA Volume (BP A-L) 51 ml RA Dimensions RA Area (4C) 14.1 cm2 <=18.0 Report Signatures
--- OUTSIDE RECORDS SUMMARY | 2024-09-27 14:47 | XMS_ITS | CONTINUITY OF CARE DOCUMENT ---
Author Name rosalina romano Address Unknown Organization [facility] Address [address] [place] [address] Phone [phone] Care Team Providers Care Veterinary Manager Name Role Phone rosalina romano Unavailable Unavailable INSURANCE PROVIDERS Payer name Policy type / Coverage type [place] [employer] green party ID [id number] OPEN ACCESS Other [id number]
--- OUTSIDE RECORDS SUMMARY | 2024-09-27 14:47 | XMS_ITS | Clinical Summary ---
Author Organization [address] Address [address] [place] [phone] Care Team Providers Care Acid Patroller Name Role Phone José Atkins MD Primary Care Provider [phone] Allergies Active Allergy Reactions Criticality Noted Date Comments Penicillins Rash Medium 05/31/1989 Sulfa (Sulfonamide Antibiotics) Itching,Redness Low 05/31/1998 Medications metoprolol (LOPRESSOR) 25 mg tablet TAKE ONE TABLET BY MOUTH TWICE DAILY 60 0 5 Active atorvastatin (LIPITOR) 40 mg tablet TAKE ONE TABLET BY MOUTH AT BEDTIME 30 0 5 Active furosemide (LASIX) 20 mg tablet 1 Active losartan (COZAAR) 50 mg tablet 1 Active guaiFENesin ER (MUCINEX) 600 mg 12 hr tablet Take 1,200 mg by mouth 2 (two) times a day Active albuterol HFA (PROVENTIL HFA,VENTOLIN HFA,PROAIR HFA) 90 mcg/actuation inhaler INHALE 2 PUFFS BY MOUTH EVERY 4 HOURS NEEDED FOR BRONCHOSPASM 2 Active cholecalciferol (VITAMIN D-3) 5,000 unit capsule Take 1 capsule (5,000 Units total) by mouth daily Active SUCROSE ORAL Take by mouth Act carlos ezetimibe (ZETIA) 10 mg tablet Take 1 tablet (10 mg total) by mouth daily 2 Active aspirin 81 mg enteric coated tablet Take 1 tablet (81 mg total) by mouth daily Active esomeprazole DR (NexIUM) 40 mg capsule Take 1 capsule (40 mg total) by mouth daily before breakfast Active fluticasone propion-salmete roL (ADVAIR DISKUS) 250-50 mcg/dose diskus inhaler Inhale 1 puff 2 (two) times a day Rinse mouth with water after use. Do not swallow. Active HYDROcodone-richelle taminophen (NORCO) 5-325 mg per tabletIndicatio ns:Pain Take 1 tablet by mouth every 6 (six) hours as needed Active loratadine 10 mg capsule Take 10 mg by mouth Active meclizine (ANTIVERT) 25 mg tablet Take 1 tablet (25 mg total) by mouth 3 (three) times a day as needed for dizziness Active montelukast (SINGULAIR) 10 mg tablet Take 1 tablet (10 mg total) by mouth nightly Active tirzepatide (MOUNJARO) 10 mg/0.5 mL pen injector Inject under the skin Active TiZANidine (ZANAFLEX) 2 mg capsule Take 1 capsule (2 mg total) by mouth 3 (three) times a day Active dicyclomine (BENTYL) 10 mg capsule Take 1 capsule (10 mg total) by mouth 4 (four) times a day before meals and nightly Active doxycycline hyclate (VIBRAMYCIN) 50 mg capsule Take 1 capsule (50 mg total) by mouth 2 (two) times a day Active ivermectin 1 % cream Apply topically Acti ve oxiconazole (Oxistat) 1 % lotion Apply topically 2 (two) times a day Active betamethasone, augmented, (DIPROLENE) 0.05 % lotion Apply topically 2 (two) times a day Active loteprednol (LOTEMAX) 0.5 % drops,gel 1 drop Active fluticasone propionate (FLOVENT DISKUS) 100 mcg/actuation diskus inhaler Inhale 1 puff 2 (two) times a day Rinse mouth with water after use. Do not swallow. Active Lactobacillus rhamnosus GG (CULTURELLE) 10 billion cell capsule Take 1 capsule by mouth daily Active psyllium 0.52 gram capsule Take 1 capsule (0.52 g total) by mouth daily Active Active Problems Problem Noted Date Diagnosed Date Hepatic steatosis 05/28/2022 Assessment & Plan (08/05/2023 8:23 PM PROOF LOAD MECHANIC): Patient with history of MASLD. She has been taking Mounjaro with weight loss of 42 lbs over the last year. FibroScan last year showed hepatic steatosis but no fibrosis. Her liver chemistries have been normal. I will have patient obtain updated labs today. If liver chemistries remain normal then no further follow-up is needed as she has lost the necessary weight. If liver chemistries are elevated, will proceed with updated FibroScan or MRI with elastograhy. Congratulated patient on her weight loss success. She has not yet gotten the hepatitis B vaccine series. Recommended she get this done. She will return to clinic on PRN basis. Assessment & Plan (05/28/2022 11:48 AM PROOF LOAD MECHANIC): Patient with hepatic steatosis noted on ultrasound from 03/18/22. Her liver enzymes are just slightly elevated. I anticipate this is NAFLD but will obtain updated labs to rule out other causes of liver disease. She will also get a FibroScan today to evaluate degree of steatosis and if any fibrosis is present. Discussed the importance of weight loss. She has already lost 15 lbs this year with the help of Mounjaro. Congratulated her on this success and encouraged she continue to lose more weight. She is to follow-up with local GI for IBS and light colored stools. We have discussed the natural history of non-acoholic fatty liver disease, the risks of progression to cirrhosis, association with hepatocellular carcinoma and potential future need for liver transplantation. We have discussed that in patients with nonalcoholic fatty liver disease the main mortality risks are primarily due to cardiovascular diseases, non-hepatic malignancies or cancers and only thirdly, from complications of liver disease. We recommend weight loss through diet and exercise. We recommend weight loss of 10% of current body weight over a period of a year. Lifestyle modification consisting of diet, exercise, and weight loss is necessary to treat patients with NAFLD. The data shows that overall weight loss is the clark to improvement in the histopathological features of GOTTI. A combination of a low calorie diet (daily reduction by 500-1,000 kcal) and moderate-intensity exercise provides the best chances of achieving and maintaining weight loss over time. Weight loss of at least 3%-5% of body weight appears necessary to improve steatosis, but a greater weight loss (7%-10%) is needed to improve the majority of the histopathological features of GOTTI, including fibrosis. She will return to clinic in 1 year. Medical History Medical History Date Comments Asthma Heart attack (HCC) Family History Medical History Relation Name Comments Cancer Mother Relation Name Status Comments Mother Social History Tobacco Use Types Packs/Day Years Used Date Smoking Tobacco: Never Smokeless Tobacco: Never Tobacco Cessation:Counseling Given: Not Answered Personal Safety Answer Date Recorded Getting School Help Needed Not on file 07/30 Comments Unknown Sex and Gender Information Value Date Recorded Sex Assigned at Not on file Legal Sex Female 3:42 AM PROOF LOAD MECHANIC Gender Identity Not on file Sexual Orientation Not on file Obstetrics History Last Filed Vital Signs Vital Sign Reading Time Taken Comments Blood Pressure 148/95 08/05/2023 3:07 PM PROOF LOAD MECHANIC Pulse 87 08/05/2023 3:07 PM PROOF LOAD MECHANIC Temperature 36.1 C (97 F) 08/05/2023 3:07 PM PROOF LOAD MECHANIC Respiratory Rate 14 04/26/2021 1:19 PM PROOF LOAD MECHANIC Oxygen Saturation 98% 08/05/2023 3:07 PM PROOF LOAD MECHANIC Inhaled Oxygen Concentration - - Weight 68.9 kg (152 lb) 08/05/2023 3:07 PM PROOF LOAD MECHANIC Height 149.9 cm (4' 11 ) 08/05/2023 3:07 PM PROOF LOAD MECHANIC Body Mass Index 30.7 08/05/2023 3:07 PM PROOF LOAD MECHANIC Plan of Treatment Health Maintenance Due Date Last Done Comments Colon Cancer Screening-Colonoscopy 1950 Depression Screening 1950 Fall Risk Assessment 1950 Osteoporosis Screening-Bone Density Scan 1949 DTaP/Tdap/Td Vaccine (1 - Tdap) 1960 Zoster Vaccine (1 of 2) 1999 Well Visit 65+ 2014 Pneumococcal vaccine 65+ (2 of 2 - PPSV23) 05/20/2015 03/25/2015 Covid-19 Vaccine (4 - 2023-2 5 season) 2024 03/01/2021, 08/11/2020, 07/21/2020 Influenza Vaccine (#1) 2024 , 02/19/2020, 03/02/2019, Additional history exists Hepatitis B Screening Completed 05/28/2022 Hepatitis C Screening Completed 05/28/2022 Procedures Procedure Name Priority Date/Time Associated Diagnosis Comments HEPATITIS C ANTIBODY Routine 05/28/2022 12:04 PM PROOF LOAD MECHANIC Hepatic steatosis from Last 3 Months or Most Recently Relevant to Health Maintenance Results * Hepatitis C antibody (05/28/2022 12:04 PM PROOF LOAD MECHANIC) Hep C Ab Nonreactive Nonreactive [facility] Comment:Antibodies to HCV no t detected. Does NOT exclude the possibility of recent exposure to HCV. Current interpretive data was last revised on 22 Blood 05/28/2022 12:0 4 PM PROOF LOAD MECHANIC 05/28/2022 3:22 PM PROOF LOAD MECHANIC Xuan Gordon NP LAB MICROBIOLOGY - GENER AL ORDERABLES Final Result [facility] Department [place] [address] from Last 3 Months or Most Recently Relevant to Health Maintenance Insurance MEDICARE ADVANTAGE [facility] MEDIC[facility] Address: [facility] [address] [place] [address] [facility] MEDICARE UHC MEDICARE ADVANTAGE [facility] MEDIC[facility] Address: [address] [address] [place] [address] Care Teams Acid Patroller Relationship Specialty Start Date End Date José Atkins MD PCP - General Family Medicine 04/26/21
--- OUTSIDE RECORDS SUMMARY | 2024-09-27 14:47 | XMS_ITS | Clinical Summary ---
Author Organization [facility] Address [address] [facility] [place] [address] Care Team Providers Care Iron Worker Foreman Name Role Phone José Atkins MD Primary Care Provider [phone] Source Comments [facility],non-owned Affiliates and Associated Physician Practices is amultiple site organization consisting of ambulatory clinics and hospital sitesin [place], [place] and [place]. This disclosure is being madepursuant to the Care Everywhere program and may not contain all information available regarding this patient. Last updated 18.[facility] [place] Social History Tobacco Use Types Packs/Day Years Used Date Smoking Tobacco: Never Assessed Comments Unknown Sex and Gender Information Value Date Recorded Sex Assigned at Not on file Legal Sex Female 6:29 AM DIRECTOR PROPERTY Gender Identity Not on file Sexual Orientation Not on file Plan of Treatment Health Maintenance Due Date Last Done Comments BONE DENSITY TESTING 1950 COLOGUARD (AGES 45-75) - COL ON CA SCREENING 1949 COLON MONITORING 1949 COLONOSCOPY - COLON CA SCREENING 1949 CT COLONOGRAPHY - COLON CA SCREENING 1950 Colorectal Cancer Screening 1949 FIT - COLON CA SCREENING 1949 FLEX SIG - COLON CA SCREENING 1949 LIPID TESTING 1949 MAMMOGRAM 1949 HEPATITIS C SCREENING 04/17/1967 DTAP/TDAP/TD VACCINES (1 - Tdap) 1968 PNEUMOCOCCAL VACCINE 50+ (1 of 1 - PCV) 1999 ZOSTER VACCINE (1 of 2) 1999 COVID-19 VACCINE ( - 2023-2 5 season) 2024 Respiratory Syncytial Virus (RSV) Vaccine Pt: or over 60 yrs (1 - 1-dose 75+ series) 2024 DEPRESSION SCREENING 05/31/2024 INFLUENZA VACCINE (Season Ended) 2025 HEPATITIS B VACCINE Aged Out No longe r eligible based on patient's age to complete this topic HIB VACCINE Aged Out No longer eligi ble based on patient's age to complete this topic HPV VACCINE Aged Out No longer eligi ble based on patient's age to complete this topic MENINGOCOCCAL (Group B) VACC INE SHARED DECISION-MAKING Aged Out No longer eligibl e based on patient's age to complete this topic MENINGOCOCCAL GROUPS A/C/Y/W VACCINE Aged Out No longer eligible b ased on patient's age to complete this topic Insurance [employer] Care Teams Iron Worker Foreman Relationship Specialty Start Date End Date José Atkins MD [address] [place] [address] PCP - General 06/27/20
--- OUTSIDE RECORDS SUMMARY | 2024-09-27 14:47 | XMS_ITS | Referral Summary ---
Author Organization [address] Address [address] [place] [phone] Care Team Providers Care Hospital Secretary Name Role Phone José Atkins MD Primary Care Provider [phone] Allergies Active Allergy Reactions Criticality Noted Date [...] 05/28/2022 Assessment & Plan (08/05/2023 8:23 PM SADDLE STITCHING MACHINE OPERATOR): Patient with history of MASLD. She has [...] basis. Assessment & Plan (05/28/2022 11:48 AM SADDLE STITCHING MACHINE OPERATOR): Patient with hepatic steatosis noted on ultrasound [...] will return to clinic in 1 year. Social History Tobacco Use Types Packs/Day Years Used Date Smoking Tobacco: Never Smokeless Tobacco: Never Tobacco Cessation:Counseling Given: Not Answered Personal Safety Answer Date Recorded Getting School Help Needed Not on file 07/30 Comments Unknown Sex and Gender Information Value Date Recorded Sex Assigned at Not on file Legal Sex Female 3:42 AM SADDLE STITCHING MACHINE OPERATOR Gender Identity Not on file Sexual Orientation Not on file Last Filed Vital Signs Vital Sign Reading Time Taken Comments Blood Pressure 148/95 08/05/2023 3:07 PM SADDLE STITCHING MACHINE OPERATOR Pulse 87 08/05/2023 3:07 PM SADDLE STITCHING MACHINE OPERATOR Temperature 36.1 C (97 F) 08/05/2023 3:07 PM SADDLE STITCHING MACHINE OPERATOR Respiratory Rate 14 04/26/2021 1:19 PM SADDLE STITCHING MACHINE OPERATOR Oxygen Saturation 98% 08/05/2023 3:07 PM SADDLE STITCHING MACHINE OPERATOR Inhaled Oxygen Concentration - - Weight 68.9 kg (152 lb) 08/05/2023 3:07 PM SADDLE STITCHING MACHINE OPERATOR Height 149.9 cm (4' 11 ) 08/05/2023 3:07 PM SADDLE STITCHING MACHINE OPERATOR Body Mass Index 30.7 08/05/2023 3:07 PM SADDLE STITCHING MACHINE OPERATOR Plan of Treatment Not on file Procedures Procedure Name Priority Date/Time Associated Diagnosis Comments HEPATITIS C ANTIBODY Routine 05/28/2022 12:04 PM SADDLE STITCHING MACHINE OPERATOR Hepatic steatosis from Last 3 Months or Most Recently Relevant to Health Maintenance Results * Hepatitis C antibody (05/28/2022 12:04 PM SADDLE STITCHING MACHINE OPERATOR) Hep C Ab Nonreactive Nonreactive [facility] Comment:Antibodies to HCV no t detected. Does NOT exclude the possibility of recent exposure to HCV. Current interpretive data was last revised on 22 Blood 05/28/2022 12:0 4 PM SADDLE STITCHING MACHINE OPERATOR 05/28/2022 3:22 PM SADDLE STITCHING MACHINE OPERATOR us Xuan Gordon NP LAB MICROBIOLOGY - GENER AL ORDERABLES Final Result [facility] Department [place] [address] from Last 3 Months or Most Recently Relevant to Health Maintenance Insurance [place] [address] AET[employer] MEDICARE [facility] MEDIC[facility] Address: [facility] [id number] [place] [address] UHC MEDICARE ADVANTAGE Care Teams Hospital Secretary Relationship Specialty Start Date End Date José Atkins MD PCP - General Family Medicine 04/26/21
--- OUTSIDE RECORDS SUMMARY | 2024-09-27 14:47 | XMS_ITS | Encounter Summary ---
Author Organization [facility] Address [address] [facility] [address] Care Team Providers Care Remelt Pan Tank Operator Name Role Phone José Atkins MD Primary Care Provider [phone] Encounter Details Date Type Department Care Team (Late st Contact Info) Description 07/01/2020 Lab Requisition [facility] [address] [place] [address] Sindhu Smith DO [address] [facility] [address] [place] [address] Social History Tobacco Use Types Packs/Day Years Used Date Smoking Tobacco: Never Assessed Comments Unknown Sex and Gender Information Value Date Recorded Sex Assigned at Not on file Legal Sex Female 6:29 AM BUREAU CHIEF Gender Identity Not on file Sexual Orientation Not on file documented as of this encounter Plan of Treatment Not on file documented as of this encounter Procedures Procedure Name Priority Date/Time Associated Diagnosis Comments DERMATOPATHOLOGY Routine 06/27/2020 12:0 0 AM BUREAU CHIEF documented in this encounter Results * DERMATOPATHOLOGY (06/27/2020 12:00 AM BUREAU CHIEF) Case Report Dermatopathology Report Case: [id number] Authorizing Provider: Sindhu Smith DO Collected: 06/27/2020 12:00 AM Ordering Location: [facility] Received: 07/01/2020 10:50 AM Pathologist: Kait Troncoso MD Specimens: A) - Skin, left hand B) - Skin, mid upper back 12:11 PM BUREAU CHIEF DERMATOPATHOLOGY LABORATORY Final Diagnosis Specimen A. SKIN, left hand: LICHEN PLANUS-LIKE KERATOSIS (BENIGN LICHENOID KERATOSIS) (L82.1) Specimen B. SKIN, mid upper back: LICHEN PLANUS-LIKE KERATOSIS (BENIGN LICHENOID KERATOSIS) (L82.1) 12:11 PM [facility] [[email or web address]] DERMATOPATHOLOGY LABORATORY Clinical History A: LENT/SK R/O: MM. B: IDN vs BCC. 12:11 PM [facility] [[email or web address]] DERMATOPATHOLOGY LABORATORY Gross Description Specimen A: Received is one formalin filled container labeled with the patient's name and designated left hand. The specimen consists of a shave measuring [id number]. Jar 0. Specimen B: Received is one formalin filled container labeled with the patient's name and designated mid upper back. The specimen consists of a shave measuring [id number]. Jar 0. 12:11 PM [facility] [[email or web address]] DERMATOPATHOLOGY LABORATORY Microscopic Description Specimen A. SKIN, left hand: The epidermis is mildly acanthotic. There is a lichenoid infiltrate with vacuolar changes of basilar keratinocytes and scattered necrotic keratinocytes. Specimen B. SKIN, mid upper back: The epidermis is mildly acanthotic. There is a lichenoid infiltrate with vacuolar changes of basilar keratinocytes and scattered necrotic keratinocytes. 12:11 PM BUREAU CHIEF DERMATOPATHOLOGY LABORATORY Disclaimer An external and internal positive and negative controls are appropriate for the histochemical, immunohistochemical and immunofluorescence stain(s) in this case (if any), except where stated explicitly. The performance characteristics of the stain(s) cited in this report were developed and its performance characteristic determined by the Dermatopathology Laboratory at [facility], directed by Dr. Marialuisa Trnocoso. These tests need not be, and therefore are not, approved by the [place] Food and Drug Administration. The tests are used for clinical purposes. Billing Codes Specimen Charges Stain Charges 52646 56444 1 1 12:11 PM BUREAU CHIEF DERMATOPATHOLOGY LABORATORY Embedded Images 12:11 PM [facility] [[email or web address]] DERMATOPATHOLOGY LABORATORY Pathology/Cytology TISSUE SPECIMEN FROM SKIN / Unknown 06/27/2020 07/01/2020 10:50 AM BUREAU CHIEF Miscellaneous samples (specimen) TISSUE SPECIMEN FROM SKIN / Unknown 06/27/2020 07/01/2020 10:50 AM BUREAU CHIEF Sindhu Smith DO LAB - PATHOLOGY/CYTOLOGY ORDERABLES Final Result DERMATOPATHOLOGY LABORATORY [facility] - Department of Dermatology [facility] Medicine [address] [place] [address], [address] [phone] documented in this encounter Visit Diagnoses Not on filedocumented in this encounter Care Teams Remelt Pan Tank Operator Relationship Specialty Start Date End Date José Atkins MD [address] [place] [address] PCP - General 06/27/20 documented as of this encounter
== END 2024-09-27 13:51 | disposition home or self-care (01) ==
PROVIDERS: PCP Family Medicine; Visit Provider Internal Medicine Cardiovascular Disease
DX: R93.1 Abnormal findings on diagnostic imaging of heart and coronary circulation (principal); I35.0 Nonrheumatic aortic (valve) stenosis
CPT/HCPCS: 93306